=== PATIENT | female | born 1940 | race Caucasian/White ===

== ENCOUNTER 2016-05-27 15:36 | Emergency (ER) | payer MEDICARE ==
[2016-05-27 15:59] VITALS: TEMP 99; BMI 25.9
[2016-05-27] MEDS ORDERED: OXYCODONE HCL 5 MG TABLET PO ONE (16:34)
--- NOTE | 2016-05-27 16:37 | DIRPT ---
CLINICAL DATA: Right hip pain today. No known injury. EXAM: RIGHT HIP (WITH PELVIS) 2-3 VIEWS COMPARISON: None. FINDINGS: Mild symmetric degenerative changes in the hips with No acute bony abnormality. Specifically, no fracture, subluxation, or dislocation. Soft tissues are intact. IMPRESSION: Mild degenerative changes in the hips. No acute bony abnormality. Electronically Signed By: Harlan Garrett M.D. On: 05/27/2016 16:34
[2016-05-27 17:22] VITALS: BP 201/83; PULSE 72
--- NOTE | 2016-05-27 17:22 | EDPRACDOC ---
ED Hip Problem HPI - General Information Chief Complaint: Hip Pain Stated Complaint: RT HIP PAIN Time Seen by Provider: 05/27/16 16:53 Information Source: Patient Mode of Arrival: Car Home Medications: Home Medications Oxycodone Immediate Release [Oxycodone Immediate Release (OxyIR)] 5 mg PO Q6H PRN #30 tab 05/27/16 Allergies/Adverse Reactions: Allergies Allergy/AdvReac Type Severity Reaction Status Date / Time ciprofloxacin [From Cipro] Allergy Diarrhea Verified 05/27/16 15:59 ciprofloxacin HCl Allergy Diarrhea Verified 05/27/16 15:59 [From Cipro] sulfamethoxazole Allergy MOUTH RASH Verified 05/27/16 15:59 [From Septra] trimethoprim [From Septra] Allergy MOUTH RASH Verified 05/27/16 15:59 - History of Present Illness Onset: last night HPI: PT PRESENTS TODAY WITH RIGHT HIP PAIN THAT BEGAN THIS MORNING UPON WAKENING. DENIES TRAUMA. ON METHOTREXATE FOR RA. NO PAIN MEDICATION AT HOME. NO OTHER SYMPTOMS REPORTED. Hip Problem Location: Reports: Right, Lateral Mechanism: Reports: No Trauma Relevant History: Reports: Arthritis Tetanus Up To Date?: (UNKNOWN LAST DATE OF TETANUS VACCINE) Able to Bear Weight: No Pain Severity: Moderate Associated Signs & Symptoms: Reports: None ED Past Medical History - History Reviewed Yes Nurses notes reviewed and agree except as marked - Patient Medical History Cardiac History: Reports: Hypertension Psychological History: Denies: Depression - Social Medical History Smoking Status: Never smoker EDM Review of Systems - Review of Systems ROS Negative Except as Marked: Yes All systems reviewed and were negative except as marked Constitutional: No Symptoms Reported Respiratory: No Symptoms Reported Cardiovascular: No Symptoms Reported Gastrointestinal: No Symptoms Reported Neurological: No Symptoms Reported Musculoskeletal: Hip Integumentary: No Symptoms Reported - Physical Exam Constitutional: Alert (Awake), No apparent distress Oriented to: Time, Person, Place Last recorded Vital Signs: Last Vital Signs Temp 99.0 F 05/27/16 15:55 Pulse 76 05/27/16 16:49 Resp 18 05/27/16 16:49 BP 217/90 H 05/27/16 16:49 Pulse Ox 93 05/27/16 16:49 Oxygen Pulse Oxygen Saturation 93 O2 Device Room Air Oxygen Flow Rate Fraction of Inspired Oxygen ( FIO2) - HEENT Head: Normal Eye Exam: Normal Neck: Normal, Denies Pain, Midline - Respiratory/Cardiovascular Respiratory: Normal - CTA Cardiovascular: Normal - GI Palpation: Normal Tenderness: Non tender - Musculoskeletal Back: Normal Extremities: Other (MODERATE TTP TO RIGHT LATERAL HIP W/OUT BRUISING/SWELLING/ ERYTHEMA/DEFORMITY; PEDAL PULSES NORMAL) - Integumentary Skin: Normal Lymphatics: Normal - Neurologic Mood Description: Normal Thought: Coherent Perception: Normal ED Hip Problem Physical Exam - Musculoskeletal Hip: Moderate tenderness Hip Deformity: Normal Pelvis: Normal Thigh: Normal Back: Normal Distal Function/Circulation: Normal - Additional Information PT GIVEN PAIN MEDICATION AND THEN PT WAS ABLE TO AMBULATE WITH ASSISTANCE, WHICH IS HER USUAL FUNCTION. NOTED HIGH BP; PT HAS NO ASSOCIATED SYMPTOMS AND STATES SHE HAS NOT TAKEN MEDICATIONS TODAY. Decision Time to Discharge: 17:21 - Departure Disposition: Home Condition: Good Final Diagnosis: Osteoarthritis of hip Instructions: Osteoarthritis (ED) Education/Counseling Given To: Patient, Family Member Education/Counseling Given Regarding: Diagnosis, Treatment, Follow Up Referrals: Shay Faulkner MD [Primary Care Provider] - One Week Prescriptions: New Oxycodone Immediate Release [Oxycodone Immediate Release (OxyIR)] 5 mg PO Q6H PRN #30 tab PRN Reason: Pain Additional Instructions: FOLLOW UP WITH PCP REGARDING CONTROL OF RIGHT HIP PAIN.
== END 2016-05-27 17:29 | disposition home or self-care (01) ==
LOC: ED 15:36 → EDMC 17:29
DX: M16.11 Unilateral primary osteoarthritis, right hip (principal)
CPT/HCPCS: 73502; 99283; A9270; J3490